=== PATIENT | male | born 1940 | race Caucasian/White ===

== ENCOUNTER → 2020-08-02 | Outpatient (CLI) | payer MEDICARE, BC | LOC: EMI 13:47 | DX: G31.9 Degenerative disease of nervous system, unspecified (principal); F02.80 Dementia in other diseases classified elsewhere, unspecified severity, without behavioral disturbance, psychotic disturbance, mood disturbance, and anxiety; G40.909 Epilepsy, unspecified, not intractable, without status epilepticus; G25.0 Essential tremor; J38.3 Other diseases of vocal cords; Z86.73 Personal history of transient ischemic attack (TIA), and cerebral infarction without residual deficits; R90.82 White matter disease, unspecified | CPT/HCPCS: 70551 ==

== ENCOUNTER 2021-10-25 13:52 | Inpatient (IN) | payer MEDICARE, BC ==
[~2021-10-25] VITALS: Ht 175.3 cm; Wt 64.0 kg
[2021-10-25 15:49] LABS: HEMOGLOBIN 13.4 gm/dl (14.0-17.5); RED BLOOD COUNT 3.75 M/UL (4.20-5.50); WHITE BLOOD COUNT 6.5 K/UL (4.5-11.0)
[2021-10-25 16:09] LABS: BUN/CREATININE RATIO 25 (0-10)
[2021-10-25] MEDS ORDERED: MULTIVITAMIN1 EACH PO (18:21)
[2021-10-25] MEDS ORDERED: ATORVASTATIN CA20 MG PO (18:21)
[2021-10-25] MEDS ORDERED: VITAMIN C 500500 MG PO (18:21)
[2021-10-25] MEDS ORDERED: FLOMAX 0.4 MG0.4 MG PO (18:22)
[2021-10-25] MEDS ORDERED: LORAZEPAM0.5 MG PO (18:22)
[2021-10-25] MEDS ORDERED: CLOPIDOGREL75 MG PO (18:22)
[2021-10-25] MEDS ORDERED: LEVOTHYROXINE88 MCG PO (18:22)
[2021-10-25] MEDS ORDERED: LEVETIRACETAM500 MG PO (18:22)
[2021-10-25] MEDS ORDERED: PRIMIDONE50 MG PO (18:23)
[2021-10-25] MEDS ORDERED: METOPROLOL SUCC25 MG PO (18:23)
[2021-10-26 03:22] LABS: HEMOGLOBIN 13.9 gm/dl (14.0-17.5); RED BLOOD COUNT 3.88 M/UL (4.20-5.50); WHITE BLOOD COUNT 5.9 K/UL (4.5-11.0)
[2021-10-26 03:46] LABS: BUN/CREATININE RATIO 17 (0-10)
[2021-10-26 11:24] LABS: BUN/CREATININE RATIO 15 (0-10)
--- NOTE | 2021-10-26 13:30 | NUR ---
RN AT BEDSIDE TO ASSIST IN FEEDING PT. PT WELL TOLERATING REG LIQUIDS. PT WELL TOLERATING PUREED DIET, PT NEEDS FEEDING ASSIST DUE TO TREMORS. WHILE FEEDING PT FAMILY ENTERS ROOM, SON NOTICES L ARM SWOLLEN. RN ASSESSES IV SITE, IV SIT EREMOVED DUE TO INFILTRATION. MD MADE AWARE. WARM COMPRESS TO BE APPLIED OT L ARM. VSS. NAD.
--- NOTE | 2021-10-26 14:10 | NUR ---
CALLED TO BEDSIDE PER SRNA. FAMILY REQUESTING DIFFERENT PHYSICIAN OVER SEE PTS CARE. WAREHOUSE DIRECTOR MADE AWARE. MD MADE AWARE. MD STATES WILL REPORT TO NEW MD. NAD VSS. WARM COMPRESS TO L ARM PREVIOUS IV SITE.
[2021-10-26 17:50] LABS: CANDIDA ALBICANS Not Detected (Negative); CANDIDA KRUSEI Not Detected (Negative); CANDIDA TROPICALIS Not Detected (Negative); ESCHERICHIA COLI Not Detected (Negative); HAEMOPHILUS INFLUENZAE Not Detected (Negative); KLEBSIELLA OXYTOCA Not Detected (Negative); KLEBSIELLA PNEUMONIAE Not Detected (Negative); KPC-CARBAPENEM-RESISTANCE GENE Not Detected (Negative); PROTEUS Not Detected (Negative); PSEUDOMONAS AERUGINOSA Not Detected (Negative); SERRATIA MARCESANS Not Detected (Negative); STAPHYLOCOCCUS AUREUS Not Detected (Negative); STREP AGALACTIAE (GROUP B) Not Detected (Negative); STREP PYOGENES (GROUP A) Not Detected (Negative); STREPTOCOCCUS Not Detected (Negative); vanA/B (VANCOMYCIN RESIST GENE Not Detected (Negative)
--- NOTE | 2021-10-26 18:12 | NUR ---
+ blood culture reported per lab at this time, Reported to Dawson PATEL. + blood culture gram + cocci. entering new orders. NAD, VSS, family at bed side.
[2021-10-26 19:22] LABS: STAPHYLOCOCCUS DETECTED (Negative)
[2021-10-27 02:25] LABS: BUN/CREATININE RATIO 20 (0-10)
[2021-10-27 09:17] LABS: HEMOGLOBIN 13.2 gm/dl (14.0-17.5); RED BLOOD COUNT 3.63 M/UL (4.20-5.50); WHITE BLOOD COUNT 6.5 K/UL (4.5-11.0)
[2021-10-27 20:53] LABS: BUN/CREATININE RATIO 17 (0-10)
[2021-10-28 05:21] LABS: HEMOGLOBIN 14.1 gm/dl (14.0-17.5); RED BLOOD COUNT 3.78 M/UL (4.20-5.50); WHITE BLOOD COUNT 5.7 K/UL (4.5-11.0)
[2021-10-28 05:52] LABS: BUN/CREATININE RATIO 14 (0-10)
[2021-10-28 08:24] LABS: BUN/CREATININE RATIO 11 (0-10)
[2021-10-29 03:01] LABS: HEMOGLOBIN 12.6 gm/dl (14.0-17.5); RED BLOOD COUNT 3.69 M/UL (4.20-5.50)
[2021-10-29 03:02] LABS: WHITE BLOOD COUNT 7.2 K/UL (4.5-11.0)
[2021-10-29 03:28] LABS: BUN/CREATININE RATIO 21 (0-10)
[2021-10-30 04:44] LABS: HEMOGLOBIN 13.5 gm/dl (14.0-17.5); RED BLOOD COUNT 3.69 M/UL (4.20-5.50); WHITE BLOOD COUNT 5.4 K/UL (4.5-11.0)
[2021-10-30 06:50] LABS: BUN/CREATININE RATIO 13 (0-10)
[2021-10-30 16:09] LABS: BUN/CREATININE RATIO 17 (0-10)
[2021-10-30 22:54] LABS: BUN/CREATININE RATIO 19 (0-10)
[2021-10-31 02:26] LABS: HEMOGLOBIN 13.5 gm/dl (14.0-17.5); RED BLOOD COUNT 3.54 M/UL (4.20-5.50)
[2021-10-31 02:29] LABS: WHITE BLOOD COUNT 9.5 K/UL (4.5-11.0)
[2021-10-31 04:17] LABS: BUN/CREATININE RATIO 20 (0-10)
[2021-10-31 10:20] LABS: BUN/CREATININE RATIO 18 (0-10)
[2021-10-31 16:17] LABS: BUN/CREATININE RATIO 17 (0-10)
[2021-11-01 02:46] LABS: HEMOGLOBIN 12.8 gm/dl (14.0-17.5); RED BLOOD COUNT 3.52 M/UL (4.20-5.50); WHITE BLOOD COUNT 7.6 K/UL (4.5-11.0)
[2021-11-01 03:16] LABS: BUN/CREATININE RATIO 20 (0-10)
--- NOTE | 2021-11-01 03:21 | NUR ---
PATIENTS IS AT BEDSIDE. PATIENT IS CONFUSED AND LETHARGIC. EARLIER IN THE SHIFT THE PATIENT'S INSISTED THAT HE GOT UP TO THE BSC TO USE THE BATHROOM. MYSELF AND THE TECH WHO IS LUIS, TOLD THE SEVERAL TIMES THAT WE COULD NOT GET HIM UP BECAUSE IT WAS UNSAFE. THAT STILL INSISTED WHAT WE GET HIM UP. HOWEVER, WE PLACED HIM ON THE BEDPAN AND TOLD HER TO CALL WHEN HE WAS DONE. LUIS STAYED IN THE ROOM AND THE SAID THAT THE PT WAS UPSET ABOUT THE BEDPAN AND THAT SHE WOULD GET HIM UP BY HERSELF. LUIS CAME TO TELL ME ABOUT IT AND I WALKED INTO PATIENTS ROOM TO TELL THE THAT SHE DID NOT NEED TO GET HIM UP BY HERSELF. WHEN I WALKED INTO THE ROOM, THE WAS ACTIVELY TRYING TO GET HIM UP FROM BED. THE PATIENT IS VERY WEAK AND HAS ALOT OF TREMORS. HE CANNOT RAISE HIMSELF UP, HOWEVER SHE WAS PULLING HIM BY THE ARMS TRYING TO GET HIM UP. ME AND LUIS STEPPED IN AND GOT THE PATIENT UP TO BEDSIDE ASSISTED BY THE WALKER, WE PUT HIM BACK IN BED DUE TO HIS WEAKNESS. UPON LEAVING THE ROOM WE PUT ONE BED RAIL UP AND THE TABLE NEXT TO THE BED. CALL LIGHT WAS IN THE BED. BED WAS LOCKED AND IN LOWEST POSITION. NON SKID SOCKS WERE ON. BED ALARM WAS ON. WAS EDUCATED ON FALLS AND WHY IT WASN'T SAFE TO GET HIM UP AND SHE SEEMED AGITATED ABOUT IT. AROUND 0230 THE PATIENT FELL AND I WAS IN ANOTHER ROOM APPLYING PRESSURE TO A BLEED. LUIS CAME TO ME STATING THAT SHIREEN AND MARIFER WENT INTO THE ROOM AND THE PATIENT WAS LAYING IN THE FLOOR WITH HIS BACK UP AGAINST THE BED AND HIS BOTTOM ON THE FLOOR. THE PATIENTS IS THE ONE THAT HIT THE CALL LIGHT AND TOLD THEM THAT HE HAD FALLEN. THE TOLD LUIS THAT SHE WAS STANDING NEXT TO HIM WHEN HE HAD FALLEN BUT KEPT INSISTING THAT HE DID NOT FALL OR DID NOT HIT HIS HEAD ON THE WAY DOWN. HOWEVER WHEN I TALKED TO THE ABOUT WHAT HAPPENED SHE SAID SHE WAS SITTING ON THE COUCH AND SHE WAS AWAKE AND HAD HEARD THE PATIENT SHUFFING AROUND AT THE BEDSIDE TABLE AND SHE GOT UP AND WENT TO HIM BUT BY THAT TIME HE WAS SITTING IN THE FLOOR. CORPORATE ADMINISTRATOR WAS NOTIFIED AND CAME TO THE FLOOR. AWARE AND ORDERED A HEAD CT DUE TO THE PATIENT BEING COGNITIVELY IMPAIRED. PATIENTS VITAL SIGNS AFTER THE FALL HR: 98 O2 SAT ON ROOM AIR 95%. RR: 20 AND BP 160/73 (89). PATIENT WAS THEN TAKEN TO CT PER MD ORDER. WHEN I CAME INTO THE ROOM THE PATIENT WAS ALREADY BACK IN BED. I ASSESSED HIM FOR INJURIES AND THERE APPEARED TO BE NONE.
--- NOTE | 2021-11-01 08:51 | NUR ---
NOTIFIED BY NIGHTSHIFT RN FANNY THAT SHE FOUND PTS FEEDING AND PUTTING ENSURE INTO PTS MOUTH EVEN WHEN HE IS NOT ORIENTED AND ABLE TO FOLLOW COMMANDS. PT HAD TO BE SUCTIONED AND NOW HAS RATTLING IN HIS CHEST. THIS AM MORNING BREAKFAST TRAY HELD WELL MEDICATIONS DUE TO PT BEING SEDATED AND NOT ABLE TO WAKE UP ENOUGH TO FOLLOW COMMANDS. SPEECH THERAPY NOTIFIED, AND CASE MANAGEMENT. PTS HAS BEEN EDUCATED MULTIPLE TIMES BY STAFF AND CASE MANAGEMENT AND SPEECH HOW TO PROPERLY FEED PT AND SIGNS OF ASPIRATION, BUT CONTINUES TO PUT FOOD AND DRINKS INTO HIS MOUTH WHILE HE IS NOT ALERT.
--- NOTE | 2021-11-01 16:20 | NUR ---
1247 11/01/21 PT IS COMBATIVE AND ATTEMPTING TO PULL OUT IV LINES AND MONITOR LINES OFF AND TRYING TO GET UP. PT STATES, " YOU BITCH, GET OUT OF HERE" ATTEMPTED TO REASSURE PT THAT HE IS OKAY AND WE ARE TRYING TO HELP. PT GIVEN PRN DOSE OF ATIVAN IV AND TOLERATED VERY WELL. HE IS RESTING AND NOW COMPLIANT AND NOT ATTEMPTING TO PULL ANYTHING OFF OR OUT. REMAINS AT BEDSIDE.
[2021-11-01 17:27] LABS: BUN/CREATININE RATIO 13 (0-10)
[2021-11-02 02:31] LABS: BUN/CREATININE RATIO 14 (0-10)
--- NOTE | 2021-11-02 06:34 | NUR ---
PATIENTS CAME TO NURSES STATION MULTIPLE TIMES DURING MY SHIFT STATING THAT PATIENT IS HUNGRY IS NEEDS FED. UPON ENTERING PATIENT ROOM, PATIENT IS NOT ALERT AND CAN NOT FOLLOW COMMANDS AND IS LETHARGIC UPON ASSESSMENT. EDUCATED ON THE IMPORTANCE OF NOT FEEDING HIM WHILE HE IS IN THIS STATE. AT 0520 PATIENTS IV WAS LAYING IN BED BESIDE PATIENT AND PATIENT IS LETHARGIC UPON ASSESSMENT.
[2021-11-02] MEDS ORDERED: SODIUM CHLORIDE1 G1 PO (13:59)
[2021-11-02] MEDS ORDERED: QUETIAPINE FUMA25 MG PO (14:07)
[2021-11-02 16:50] LABS: BUN/CREATININE RATIO 13 (0-10)
[2021-11-03 02:06] LABS: HEMOGLOBIN 12.7 gm/dl (14.0-17.5); RED BLOOD COUNT 3.55 M/UL (4.20-5.50)
[2021-11-03 02:07] LABS: WHITE BLOOD COUNT 11.5 K/UL (4.5-11.0)
[2021-11-03 02:24] LABS: BUN/CREATININE RATIO 12 (0-10)
[2021-11-03 16:40] LABS: BUN/CREATININE RATIO 12 (0-10)
--- NOTE | 2021-11-07 09:45 | NUR ---
PT UNABLE TO TAKE PO MEDS. PT WILL NOT WAKE UP, WHEN ATTEMPTING TO WAKE PT. PT STATES " GET OUT". MD MADE AWARE. NEW ORDERS FOR SPEECH TO REEVALUATE, ABG, AND CHEST X RAY.
--- NOTE | 2021-11-07 12:10 | NUR ---
IN TO CHECK ON PT. PT EXPRESSES FRUSTRATION ABOUT PLAN OF CARE, REQUESTS TO SPEAK WITH LICENSED PRACTICAL VOCATIONAL NURSE. LICENSED PRACTICAL VOCATIONAL NURSE MADE AWARE. ATTEMPTED TO FEED PT, PT REFUSES TO EAT.
--- NOTE | 2021-11-07 15:30 | NUR ---
MD MADE AWARE OF POOR ORAL INTAKE TODAY. IN TO SEE PT. NAD, AT BEDSIDE.
[2021-11-10 05:38] LABS: HEMOGLOBIN 12.1 gm/dl (14.0-17.5); RED BLOOD COUNT 3.62 M/UL (4.20-5.50); WHITE BLOOD COUNT 8.8 K/UL (4.5-11.0)
--- NOTE | 2021-11-11 00:19 | NUR ---
DURING MED PASS, PT AGREED TO ONE BITE OF APPLESAUCE WITH MEDS, PT STARTED SAYING FOR ME AND HIS WHO IS AT BEDSIDE TO GO AWAY AND GO AWAY NOW. DID NOT ATTEMPT LOVENOX SHOT AT THIS TIME. WILL CONTINUE TO MONITOR PT.
[2021-11-11 07:02] LABS: HEMOGLOBIN 12.7 gm/dl (14.0-17.5); RED BLOOD COUNT 3.28 M/UL (4.20-5.50); WHITE BLOOD COUNT 9.4 K/UL (4.5-11.0)
[2021-11-11] MEDS ORDERED: LORAZEPAM0.5 MG PO (13:17)
[2021-11-11] MEDS ORDERED: NYSTATIN60 GM TOP (13:17)
[2021-11-11] MEDS ORDERED: POLYETHYLENE GL17 GM PO (13:17)
[2021-11-11] MEDS ORDERED: LEVOTHYROXINE100 MCG PO (13:17)
[2021-11-11] MEDS ORDERED: ASPIRIN EC81 MG PO (13:17)
[2021-11-11] MEDS ORDERED: IPRAT-ALBUT 0.5-3 ML INH (13:17)
[2021-11-11] MEDS ORDERED: DOCUSATE SODIU100 MG PO (13:17)
[2021-11-11] MEDS ORDERED: CLONIDINE1 EACH TD (13:20)
[2021-11-11] MEDS ORDERED: ATORVASTATIN CA20 MG PO (13:20)
== END 2021-11-11 17:54 | DRG 643 ==
LOC: ER1 13:52 → CDU 18:06 → PROG CARE 18:06 → MED SURG 4 18:06 → PROG CARE 20:00 → MED SURG 4 11-03 14:07
PROVIDERS: Emergency Medicine; Internal Medicine; Internal Medicine Nephrology; ADMIT Internal Medicine Infectious Disease
DX: E22.2 Syndrome of inappropriate secretion of antidiuretic hormone (principal); G93.41 Metabolic encephalopathy; J96.21 Acute and chronic respiratory failure with hypoxia; N17.9 Acute kidney failure, unspecified; R64 Cachexia; E87.2 Acidosis; I25.10 Atherosclerotic heart disease of native coronary artery without angina pectoris; G40.909 Epilepsy, unspecified, not intractable, without status epilepticus; E03.9 Hypothyroidism, unspecified; I35.0 Nonrheumatic aortic (valve) stenosis; E86.0 Dehydration; R45.1 Restlessness and agitation; R13.10 Dysphagia, unspecified; F03.90 Unspecified dementia, unspecified severity, without behavioral disturbance, psychotic disturbance, mood disturbance, and anxiety; D53.9 Nutritional anemia, unspecified; N40.0 Benign prostatic hyperplasia without lower urinary tract symptoms; E83.42 Hypomagnesemia; R91.8 Other nonspecific abnormal finding of lung field; Z20.822 Contact with and (suspected) exposure to COVID-19; E87.6 Hypokalemia; Z95.5 Presence of coronary angioplasty implant and graft; Z79.899 Other long term (current) drug therapy; Z86.73 Personal history of transient ischemic attack (TIA), and cerebral infarction without residual deficits; Z87.891 Personal history of nicotine dependence; Z83.6 Family history of other diseases of the respiratory system; Z83.3 Family history of diabetes mellitus; Z82.49 Family history of ischemic heart disease and other diseases of the circulatory system; Z80.1 Family history of malignant neoplasm of trachea, bronchus and lung; Z68.20 Body mass index [BMI] 20.0-20.9, adult
CPT/HCPCS: ECHO; 36415; 36600; 70450; 70551; 71045; 71250; 80048; 80053; 80202; 81001; 82140; 82436; 82533; 82550; 82553; 82565; 82570; 82607; 82803; 83605; 83735; 83880; 83935; 84133; 84295; 84300; 84439; 84443; 84484; 84550; 85025; 85027; 87040; 87077; 87150; 92526; 92610; 93005; 93306; 93880; 94640; 94664; 94760; 96361; 96374; 97110; 97110-GP-CQ; 97116; 97116-GP-CQ; 97161; 97165; 97530; 97530-GP-CQ; 99285; J1650; J1940; J1953; J2060; J3360; J3370; J7042; J7050; J7070; J7131; P9047; U0002